=== PATIENT | male | born 1950 | race Caucasian/White ===

== ENCOUNTER 2020-03-15 13:41 | Emergency (ER) | payer OTHER, SELFPAY ==
--- NOTE | 2020-03-15 13:36 | ECG_ITS ---
APPROVED REPORT Exam: Resting ECG HR:52 bpm ECG Measurements Heart Rate 52 AXES KS 214 P 31 QRSd 140 QRS -51 QT 434 T 89 QTc 403 <Conclusion> Sinus bradycardia with 1st degree AV block Left axis deviation Nonspecific intraventricular block Cannot rule out Anterior infarct, age undetermined Abnormal ECG Electronically signed by : Dmitry Huizar, 03/17/2020 06:44:05
[2020-03-15 13:41] VITALS: BP 113/64; PULSE 51; RESP 11; O2SAT 96
[2020-03-15 13:42] VITALS: BP 113/64; PULSE 52; RESP 20; TEMP 36.4; O2SAT 96; BMI 42.3
--- NOTE | 2020-03-15 13:55 | XR_ITS ---
PROCEDURE: XR CHEST PORTABLE CLINICAL HISTORY: chest pain COMPARISON: No exams were available for comparison FINDINGS: Mild cardiomegaly without failure. Prior median sternotomy The lungs are clear without infiltrates, suspicious nodules, or pleural effusions. No acute bony abnormalities. IMPRESSION: No acute findings. Dictated by: Roque Villafuerte MD 03/15/2020 14:34 Electronically signed by Roque Villafuerte MD in [place] 03/15/2020 14:34
--- NOTE | 2020-03-15 13:58 | [facility].EDCP ---
ED Disposition Clinical Impression: Epigastric pain, Elevated transaminase level, Atypical chest pain Nausea and vomiting Qualifiers: Vomiting type: unspecified Vomiting Intractability: non-intractable Qualified Code(s): R11.2 - Nausea with vomiting, unspecified Disposition: [facility] Condition on Discharge: Fair Time of Disposition: 15:34 - Critical Care Critical Care Time: No Attestation: On , the high probability of a clinically significant, sudden or life threatening deterioration of the following system(s) required my full and direct attention, intervention and personal management. The time I documented below is in addition to time spent performing reported procedures but includes the following listed in this critical care notation. Medical Decision Making - Medical Records Medical records reviewed: Yes: I reviewed the patient's medical records. - Kristofer Inquiry Pt receiving controlled substance: No Vital Signs: 03/15/20 13:41 03/15/20 13:42 03/15/20 14:11 Temperature 97.6 F Temperature Source Oral Pulse Rate [Brachial] 51 L 52 L 52 L Respiratory Rate 11 L 20 14 Blood Pressure [Right Arm] 113/64 113/64 119/56 L Blood Pressure Mean [Right Arm] 80 80 77 Blood Pressure Source [Right Arm] Automatic Cuff Automatic Cuff Automatic Cuff Blood Pressure Position [Right Arm] Supine Sitting Supine 02 Sat by Pulse Oximetry 96 96 94 L Oxygen Delivery Method Room Air Room Air Room Air 03/15/20 14:54 Temperature Temperature Source Pulse Rate [Brachial] 57 L Respiratory Rate 20 Blood Pressure [Right Arm] 114/63 Blood Pressure Mean [Right Arm] 80 Blood Pressure Source [Right Arm] Automatic Cuff Blood Pressure Position [Right Arm] Sitting 02 Sat by Pulse Oximetry 97 Oxygen Delivery Method Room Air - Lab Data Lab Results 03/15/20 13:50: WBC 16.7 H, RBC 5.14, Hgb 15.6, Hct 45.5, MCV 88.5, MCH 30.4, MCHC 34.3, RDW 14.2, Plt Count 286, MPV 7.5, Neut % (Auto) 83.6 H, Lymph % (Auto) 10.4, [place] % (Auto) 5.0, Eos % (Auto) 0.7, Baso % (Auto) 0.3, Neut # (Auto) 13.9 H, Lymph # (Auto) 1.7, [place] # (Auto) 0.8, Eos # (Auto) 0.1, Baso # (Auto) 0.1, Total Counted 100, Neutrophils % (Manual) 85 H, Lymphocytes % (Manual) 10, Monocytes % (Manual) 5, Platelet Estimate Normal, RBC Morphology Normal 03/15/20 13:50: Sodium 136, Potassium 4.4, Chloride 98, Carbon Dioxide 29, Anion Gap 13.4, BUN 19, Creatinine 1.20, Estimated Creat Clear 53, Estimated GFR 60, Est GFR ( Amer) 72, Glucose 294 H, Calcium 9.6, Total Bilirubin 4.3 H, AST 413 H*, ALT 218 H, Alkaline Phosphatase 112, Troponin I < 0.01, Total Protein 7.2, Albumin 4.2, Globulin 3.0, Albumin/Globulin Ratio 1.4, Lipase 197 Result diagrams: 03/15/20 13:50 03/15/20 13:50 Orders (Tests/Meds): ED MEDICATIONS Discontinued Medications Generic Name Dose Route Start Last Admin Trade Name Freq PRN Reason Stop Dose Admin Belladonna Alkaloids 60 ml 03/15/20 13:57 03/15/20 14:04 Gi Cocktail 60ml Udc PO 03/15/20 13:58 60 ml ONCE ONE Administration Ondansetron HCl 4 mg 03/15/20 13:48 03/15/20 14:04 Zofran 4mg/2ml Vial IV 03/15/20 13:49 4 mg ONCE ONE Administration ORDERS Category Date Time Status CT head/brain wo con Stat Cat Scan 03/15/20 13:47 Stop Req Lactic Acid Stat Lab 03/15/20 13:55 Ordered Troponin I Q3H Lab 03/15/20 17:00 Ordered Troponin I Q3H Lab 03/15/20 20:00 Ordered - Radiology Data #1 Image(s): Chest Image Reviewed: Yes I reviewed the patient's radiology results, Yes I reviewed the patient's radiology image FINDINGS: Mild cardiomegaly without failure. Prior median sternotomy The lungs are clear without infiltrates, suspicious nodules, or pleural effusions. No acute bony abnormalities. IMPRESSION: No acute findings - ECG Data Tracing #1 Sinus bradycardia with first-degree AV block. Minimal ST segment changes in V, V2, V3. No arrhythmia. No significant ST seg
[2020-03-15 14:08] LABS: Chloride 98 mmol/L (98-107); Potassium 4.4 mmoL/L (3.5-5.1); Sodium 136 mmol/L (136-145)
[2020-03-15 14:10] LABS: Alanine Aminotransferase 218 U/L (12-78); Alkaline Phosphatase 112 U/L (38-126); Anion Gap 13.4 mEq/L (5-15); Aspartate Amino Transferase 413 U/L (17-59); Basophils # 0.1 K/mm3 (0-0.2); Basophils % 0.3 % (0.1-2.0); Bilirubin,Total 4.3 mg/dl (0.2-1.3); Blood Urea Nitrogen 19 mg/dl (9-20); Carbon Dioxide 29 mmol/L (22.0-30.0); Creatinine Clearance Estimated 53 mL/min (50-200); Eosinophils # 0.1 K/mm3 (0.0-0.4); Eosinophils % 0.7 % (0.1-12.0); Estimated Glomerular Filt Rate 60 ml/min (>60); GFR (African American) 72 ML/MIN (>60); Hematocrit 45.5 % (42.0-52.0); Hemoglobin 15.6 g/dL (14.1-18.0); Lipase 197 U/L (23-300); Lymphocytes # 1.7 K/mm3 (0.7-4.5); Lymphocytes % 10.4 % (10-50); Mean Corpuscular HGB Conc 34.3 g/dL (31.8-35.4); Mean Corpuscular Hemoglobin 30.4 pg (27.0-31.2); Mean Corpuscular Volume 88.5 fl (80-94); Mean Platelet Volume 7.5 fl (7.4-10.4); Monocytes # 0.8 K/mm3 (0.1-1.0); Neutrophils # 13.9 K/mm3 (1.8-7.8); Neutrophils % 83.6 % (37.0-80.0); Platelet Count 286 K/mm3 (142-424); Red Blood Count 5.14 M/mm3 (4.60-6.20); Red Cell Distribution Width 14.2 % (11.5-17.5); White Blood Count 16.7 K/mm3 (4.8-10.8)
[2020-03-15 14:11] VITALS: BP 119/56; PULSE 52; RESP 14; O2SAT 94
[2020-03-15 14:11] LABS: Albumin Level 4.2 g/dl (3.5-5.0); Albumin/Globulin Ratio 1.4 (1.1-1.8); Calcium 9.6 mg/dl (8.4-10.2); Glucose 294 mg/dl (74-100); Total Protein,Serum 7.2 g/dl (6.3-8.2)
[2020-03-15 14:13] LABS: MANUAL DIFFERENTIAL MANUAL DIFFERENTIAL (MANUAL DIFF)
[2020-03-15 14:23] LABS: Troponin I < 0.01 ng/ml (0.00-0.034)
[2020-03-15 14:29] LABS: Lymphocytes % 10 % (10-50); Monocytes % 5 % (2-9); Neutrophils % 85 % (42-76); Total Cells Counted 100
[2020-03-15 14:30] LABS: Platelet Estimate Normal; RBC Morphology Normal
[2020-03-15 14:54] VITALS: BP 114/63; PULSE 57; RESP 20; O2SAT 97
--- NOTE | 2020-03-15 15:18 | PC.NURSE ---
[facility] called for admission request/possible transfer. nd states they have plenty of beds and will have admitting provider return call for consult.
--- NOTE | 2020-03-15 15:26 | PC.NURSE ---
dr keene consulting with dr irma perez at [facility] for possible transfer.
[2020-03-15 15:59] LABS: Lactic Acid 2.5 mmol/L (0.7-2.1)
--- NOTE | 2020-03-15 16:59 | PC.NURSE ---
[facility] notified of patient's temperature increase of 100.7.
[2020-03-15 17:01] VITALS: BP 114/63; PULSE 57; RESP 20; TEMP 38.2; O2SAT 97
[2020-03-16 20:03] LABS: POC Glucose,Bedside 291 (70-110)
== END 2020-03-15 17:02 ==
PROVIDERS: Emergency Provider Emergency Medicine
DX: R07.89 Other chest pain (principal); R10.13 Epigastric pain; I25.10 Atherosclerotic heart disease of native coronary artery without angina pectoris; I25.2 Old myocardial infarction; R73.9 Hyperglycemia, unspecified
CPT/HCPCS: 36415; 71045; 80053; 82962; 83605; 83690; 84484; 85007; 85025; 93005; 96365; 96375; 99284; J2405